=== PATIENT | female | born 1980 | race Asian ===

== ENCOUNTER 2021-11-18 16:25 | Inpatient (IN) | payer BC ==
[~2021-11-18] VITALS: Ht 152.4 cm; Wt 51.5 kg
[2021-11-18 16:25] VITALS: BP_SYST 111
[~2021-11-18 16:25] MED LIST: BUPIVACAINE /EPINEPHRINE/PF 0.25% 30 ML VIAL INJ ONE; LR 1,000 ML IV.SOLN IV ONE; MIDAZOLAM HCL 5 MG/5 ML VIAL IVP ONE; NS 1000 ML IV.SOLN IV ONE; PROPOFOL 200MG/ 20ML VIAL (DIPRIVAN) IV ONE; ROCURONIUM BROMIDE 10 MG/ML (ZEMURON) IV ONE; SEVOFLURANE 15 MIN GAS INH ONE; fentaNYL CITRATE 250 MCG/5 ML AMP IV ONE; metroNIDAZOLE 500 mg/NS 100 mL IVPB IV ONE
[2021-11-18 16:33] VITALS: BP_SYST 123
--- NOTE | 2021-11-18 16:47 | NUR ---
Placed in room 7. Placed on sandblasting supervisor, blood pressure machine and pulse oximeter. To gown for exam. Side rails up. Report given to CARYN MARIANO.
[2021-11-18] MEDS ORDERED: cefTRIAXone 1 GM in D5W 50 ML IV ONE (17:00)
[2021-11-18] MEDS ORDERED: NACL 0.9% 1,000 ML IV ONE ×3 (17:00→19:45)
[2021-11-18] MEDS ORDERED: metroNIDAZOLE 500 mg/NS 100 ML IV ONE (17:00)
--- NOTE | 2021-11-18 17:08 | NUR ---
# 20 gauge angiocath placed to left forearm. Use of asceptic technique. Opsite placed over site. Blood return noted. Blood for lab drawn from site. Flushed with 10 cc of normal saline. No evidence of infiltration noted. Patient tolerated well.
--- NOTE | 2021-11-18 17:08 | NUR ---
Urine collected and sent to lab.
--- NOTE | 2021-11-18 17:08 | NUR ---
Covid swab done and sent to lab.
[2021-11-18] MEDS ORDERED: cefTRIAXone 1 GM VIAL ONE (17:14)
[2021-11-18 17:21] LABS: BASOPHILS % (AUTO) 0.2 % (0.0-2.0); HEMATOCRIT 35.2 % (36-48); HEMOGLOBIN 11.9 g/dL (12.0-16.0); LYMPHOCYTES # (AUTO) 1.4 K/uL (1.0-5.5); MEAN CORPUSCULAR HEMOGLOBIN 30 pg (27-31); MEAN CORPUSCULAR HGB CONC 34 % (32-36); MEAN CORPUSCULAR VOLUME 89 fL (79.0-98.0); MONOCYTES # (AUTO) 0.6 K/uL (0.0-1.0); MONOCYTES % (AUTO) 3.3 % (1.7-9.3); NEUTROPHILS # (AUTO) 17.5 K/uL (1.8-7.7); NEUTROPHILS % (AUTO) 89.5 % (40.0-70.0); PLATELET COUNT (AUTO) 249 K/uL (130-430); RED BLOOD CELL COUNT(AUTO) 3.95 MIL/uL (4.2-6.2); RED CELL DISTRIBUTION WIDTH 12.6 % (9.0-15.0); WHITE BLOOD COUNT (AUTO) 19.6 K/uL (4.8-10.8)
[2021-11-18] MEDS: MORPHINE 4 MG INJ. 4 MG/ML VIAL IVP PRN ×2 (17:24→21:35)
[2021-11-18] MEDS: ONDANSETRON HCL 4 MG/2 ML VIAL IVP PRN ×2 (17:24→21:35)
[2021-11-18 17:35] LABS: CALCIUM 8.4 mg/dL (8.4-11.0); CREATININE 0.93 mg/dL (0.55-1.30); POTASSIUM 3.4 mmol/L (3.5-5.1)
[2021-11-18 17:37] LABS: BILIRUBIN,URINE NEGATIVE (NEGATIVE); CLARITY/URINE SL CLOUDY (CLEAR); COLOR,URINE YELLOW (YELLOW); GLUCOSE,URINE NEGATIVE (NEGATIVE); KETONES,URINE NEGATIVE (NEGATIVE); LEUKOCYTE ESTERASE ,URINE NEGATIVE (NEGATIVE); NITRITE, URINE NEGATIVE (NEGATIVE); PROTEIN URINE TRACE (NEGATIVE); UROBILINOGEN,URINE 0.2 (0.2-1.0)
[2021-11-18 17:41] LABS: ALBUMIN 3.8 g/dL (3.4-4.8); TOTAL BILIRUBIN 0.6 mg/dL (0.0-1.0)
--- NOTE | 2021-11-18 17:41 | NUR ---
test completed and results were negative.
[2021-11-18 17:46] LABS: BLOOD, URINE TRACE (NEGATIVE)
[2021-11-18] MEDS ORDERED: TELM80TA2 PO (17:55)
--- NOTE | 2021-11-18 17:55 | NUR ---
Medication reconciliation completed with information provided by patient. Any prior medication reconciliation on file was reviewed and corrected.
--- NOTE | 2021-11-18 17:55 | NUR ---
Personal Belonging List completed.
--- NOTE | 2021-11-18 18:33 | NUR ---
OR staff came to speak with patient. Nurse to call Dr Gray for surgery. Office number call unsuccessful at this time.
[2021-11-18 18:45] LABS: BACTERIA,URINE FEW /HPF (None Seen); MUCUS,URINE 2+ /LPF (None Seen); RBC,URINE 0-3 /HPF (0-3)
--- NOTE | 2021-11-18 19:15 | NUR ---
Report received from CARYN Castaneda at this time. Pt states "pain is slowly coming back but I want to wait a bit longer to receive more morphine". Pt informed of PRN status of morphine and interval between doses.
--- NOTE | 2021-11-18 19:42 | NUR ---
Spoke with Mor Gray and Andrew regarding surgery. Patient last ate at 1530. Dr. Gray scheduled surgery for 0511/19/21. Dr Gray stated he will notify OR crew. Dr Morales was notified of time.
--- NOTE | 2021-11-18 20:15 | NUR ---
ADMISSION NOTE Received patient from ER via wheelchair. Patient admitted with diagnosis of abdominal regidity. Patient oriented to hospital routine, call light, toileting and safety-patient verbalized understanding.
[2021-11-18 20:29] VITALS: BP_SYST 111
[2021-11-18 20:35] LABS: HCG,QUAL RESULT NEGATIVE (NEGATIVE)
--- NOTE | 2021-11-18 20:52 | NUR ---
DR. HAZEL AT BEDSIDE TO SEE PT. PT FOR SURGERY TOMORROW AM. PT MAINTAINED NPO.
[2021-11-19 00:03] VITALS: BP_SYST 117
[2021-11-19] MEDS: MORPHINE 4 MG INJ. 4 MG/ML VIAL IVP PRN ×2 (05:11)
--- NOTE | 2021-11-19 05:24 | NUR ---
OR nurse here for pt. Checklist done. Pt AAOx4. Pt medicated for c/o severe abd pain. CHG bath given. IVF infusing L. FA 20G clear and patent. Pt maintained NPO.
[2021-11-19] MEDS ORDERED: METOCLOPRAMIDE HCL 10 MG/2 ML VIAL IVP PRN (06:00)
[2021-11-19] MEDS ORDERED: ONDANSETRON HCL 4 MG/2 ML VIAL IVP PRN ×2 (06:00→10:15)
[2021-11-19] MEDS ORDERED: fentaNYL CITRATE/PF 100 MCG/2 ML AMP IVP PRN (06:00)
--- NOTE | 2021-11-19 07:14 | NUR ---
OPENING NOTE RECEIVED SBAR FROM NIGHT RN, PATIENT IN SURGERY
[2021-11-19] MEDS ORDERED: fentaNYL CITRATE/PF 100 MCG/2 ML AMP ONE (07:25)
[2021-11-19] MEDS: fentaNYL CITRATE/PF 100 MCG/2 ML AMP IVP PRN ×2 (07:25→07:50)
[2021-11-19 07:57] LABS: BASOPHILS % (AUTO) 0.1 % (0.0-2.0); EOSINOPHILS % (AUTO) 0.1 % (0.0-4.0); HEMATOCRIT 29.8 % (36-48); HEMOGLOBIN 10.4 g/dL (12.0-16.0); LYMPHOCYTES # (AUTO) 0.9 K/uL (1.0-5.5); LYMPHOCYTES % (AUTO) 11.7 % (20.5-51.5); MEAN CORPUSCULAR HEMOGLOBIN 32 pg (27-31); MEAN CORPUSCULAR HGB CONC 35 % (32-36); MEAN CORPUSCULAR VOLUME 91 fL (79.0-98.0); MONOCYTES # (AUTO) 0.2 K/uL (0.0-1.0); MONOCYTES % (AUTO) 2.6 % (1.7-9.3); NEUTROPHILS # (AUTO) 6.4 K/uL (1.8-7.7); NEUTROPHILS % (AUTO) 85.5 % (40.0-70.0); PLATELET COUNT (AUTO) 191 K/uL (130-430); RED BLOOD CELL COUNT(AUTO) 3.28 MIL/uL (4.2-6.2); RED CELL DISTRIBUTION WIDTH 12.5 % (9.0-15.0); WHITE BLOOD COUNT (AUTO) 7.5 K/uL (4.8-10.8)
[2021-11-19 08:05] LABS: CREATININE 0.69 mg/dL (0.55-1.30)
[2021-11-19 08:09] LABS: INR 1.1 (0.8-1.2); PROTHROMBIN TIME 11.5 SECS (9.5-12.5)
[2021-11-19 08:24] LABS: CALCIUM 6.9 mg/dL (8.4-11.0)
[2021-11-19] MEDS ORDERED: cefTRIAXone 1 GM in D5W 50 ML IV SCH ×2 (08:30→17:00)
[2021-11-19 08:40] VITALS: BP_SYST 112
--- NOTE | 2021-11-19 08:41 | NUR ---
RECEIVED FROM OP NOTE MELISA RECEIVED REPORT, FROM RN, SCD IN PLACE, RESPIRATIONS EVEN, NON LABORED, BED IN LOW AND LOCKED POSITION, CALL LIGHT WITHIN REACH, BED ALARM ON. VS TAKEN, 3 WOUNDS SITES COVERED WITH BANDAGE
--- NOTE | 2021-11-19 08:56 | NUR ---
MD DR STEWARD BEDSIDE EXAMINING PATIENT
--- NOTE | 2021-11-19 09:28 | NUR ---
ATTENDING MD STEAK TENDERIZER MACHINE DR CHASE WAS CALLED, RE: CRITICAL LABS. SPOKE TO RHIANNA.
--- NOTE | 2021-11-19 09:33 | NUR ---
critical informed dr Snyder of Calcium 6.9 no new orders
[2021-11-19] MEDS ORDERED: MAGNESIUM SULFATE 50 ML IV PRN (10:15)
[2021-11-19] MEDS ORDERED: MORPHINE 2 MG/ML INJ. SYRINGE IVP PRN (10:15)
[2021-11-19] MEDS ORDERED: DOCUSATE SODIUM 100 MG CAPSULE PO PRN (10:15)
[2021-11-19] MEDS ORDERED: NALOXONE HCL 0.4 MG/ML AMP (NARCAN) IVP PRN ×2 (10:15)
[2021-11-19] MEDS ORDERED: ZOLPIDEM TARTRATE 5 MG TABLET PO PRN (10:15)
[2021-11-19] MEDS ORDERED: MUPIROCIN 2% TOPICAL OINTMENT 22 GM NS PRN (10:15)
[2021-11-19] MEDS ORDERED: LORazepam 2 MG/ML VIAL IVP PRN (10:15)
--- NOTE | 2021-11-19 11:41 | NUR ---
nurse note assisted patient ambulate to the bathroom and back to bed, patient voided. tolerating juices and ice chips. denies any pain. Has discomfort with ambulation
[2021-11-19 12:00] VITALS: BP_SYST 124
[2021-11-19] MEDS: metroNIDAZOLE 500 mg/NS 100 ML IV SCH ×2 (14:39→21:47)
[2021-11-19] MEDS: MORPHINE 2 MG/ML INJ. SYRINGE IVP PRN ×3 (14:40→22:46)
--- NOTE | 2021-11-19 15:00 | NUR ---
nurse note assisted patient ambulate to bathroom, voided, ambulated back to bed. Denies pain just discomfort.
[2021-11-19 16:00] VITALS: BP_SYST 122
--- NOTE | 2021-11-19 18:30 | NUR ---
nurse note assisted patient ambulation to the bathroom. voided, return to bed. Patient complaining of pain and requested pain medication.
--- NOTE | 2021-11-19 19:15 | NUR ---
Closing note provided Sbar to night RN, patient in bed, respirations even, non labored, bed in low and locked position. Endorsed re assessment of pain medication effectiveness. Endorsed care to RN.
[2021-11-19 20:20] VITALS: BP_SYST 115
--- NOTE | 2021-11-19 20:20 | NUR ---
Opening notes/Incentive spirometer Pt AAOx4, VSS, afebrile. Pt states pain is ok at this time. Pt tolerated clear liquid diet fairly. Abd lap sites bandage x3 dry and intact, one top lap site with dry serousangenous drainage. Encouraged pt to use I.S. 10x per hour while awake, pt verbalized understanding. Obey SCDs on. Call light within reach. Bed low, locked, siderails up x2. To monitor.
[2021-11-19] MEDS: POTASSIUM CHLORIDE 20 MEQ TAB.PRT.SR PO PRN (20:22)
--- NOTE | 2021-11-19 21:46 | NUR ---
Ambulated to Bathroom Pt ambulated to bathroom, no sob noted. Pt voided. Pt c/o pain, educated pt Morphine is every 4 hrs as needed and due at 1040, pt agreeable. IV antibiotic Flagyl administered at ordered rate L. FA 20G clear and patent. Call light within reach. To monitor.
[2021-11-20 00:04] VITALS: BP_SYST 107
[2021-11-20] MEDS: MORPHINE 2 MG/ML INJ. SYRINGE IVP PRN ×4 (04:35→18:56)
[2021-11-20] MEDS: metroNIDAZOLE 500 mg/NS 100 ML IV SCH ×3 (05:18→22:48)
--- NOTE | 2021-11-20 05:18 | NUR ---
Closing notes Pt awake, states pain is better. IV abx administered at ordered rate L. FA 20G clear and patent. Pt ambulates to bathroom. Obey SCDs on. Call light within reach. Bed low, locked, siderails up x2. Safety maintained. To endorse to AM nurse.
[2021-11-20 08:00] VITALS: BP_SYST 113
--- NOTE | 2021-11-20 08:00 | NUR ---
Opening Note Patient is sitting up in bed awake. A/O x4. No apparent distress noted. Vitals as charted. Call light within reach. Safety and fall precautions in place. All needs met.
[2021-11-20 08:12] LABS: BASOPHILS % (AUTO) 0.2 % (0.0-2.0); HEMATOCRIT 28.7 % (36-48); LYMPHOCYTES # (AUTO) 0.5 K/uL (1.0-5.5); LYMPHOCYTES % (AUTO) 5.7 % (20.5-51.5); MEAN CORPUSCULAR HEMOGLOBIN 32 pg (27-31); MEAN CORPUSCULAR HGB CONC 35 % (32-36); MEAN CORPUSCULAR VOLUME 92 fL (79.0-98.0); MONOCYTES # (AUTO) 0.2 K/uL (0.0-1.0); MONOCYTES % (AUTO) 2.5 % (1.7-9.3); NEUTROPHILS # (AUTO) 8.4 K/uL (1.8-7.7); NEUTROPHILS % (AUTO) 91.6 % (40.0-70.0); PLATELET COUNT (AUTO) 196 K/uL (130-430); RED BLOOD CELL COUNT(AUTO) 3.13 MIL/uL (4.2-6.2); RED CELL DISTRIBUTION WIDTH 12.6 % (9.0-15.0); WHITE BLOOD COUNT (AUTO) 9.1 K/uL (4.8-10.8)
--- NOTE | 2021-11-20 08:51 | NUR ---
PRN Pain Medication Pain medication given to patient as charted. Patient has low grade fever as charted, cooling measures provided.
[2021-11-20 12:00] VITALS: BP_SYST 112
[2021-11-20] MEDS: PIPERACILLIN/TAZO 4.5GM/DEX-IS 100 ML IV SCH ×2 (13:11→21:12)
[2021-11-20] MEDS: ACETAMINOPHEN 325 MG TABLET PO PRN ×2 (13:21→21:11)
[2021-11-20 16:44] VITALS: BP_SYST 101
[2021-11-20] MEDS: POTASSIUM CHLORIDE 20 MEQ TAB.PRT.SR PO PRN (17:08)
--- NOTE | 2021-11-20 19:40 | NUR ---
Closing Note Patient is laying in bed awake. No apparent distress noted. Provided patient with pain medication throughout shift as charted. Call light within reach. Safety and fall precautions in place. All needs met. Will endorse care to shift commander RN.
[2021-11-20 19:45] VITALS: BP_SYST 102
--- NOTE | 2021-11-20 20:00 | NUR ---
Report received. Pt is awake, alert, oriented x4, vs stable, no acute distress noted. Patient is lying in bed, c/o of gas pain and tenderness to abdomen. Patient is hesitant of taking morphine iv due to how it makes her feel. Will inform MD to obtain a different pain med. Assuming care for pt.
--- NOTE | 2021-11-20 20:49 | NUR ---
[facility] and spoke to Dr. Adrian. Informe that Morphine 1 mg q4h does not help with the pain and gas pain is really bad per patient. Order received for a x1 dose of Toradol 15 mg iv.
[2021-11-20] MEDS ORDERED: KETOROLAC TROMETHAMINE 15 MG VIAL IVP ONE (21:00)
[2021-11-20 23:05] VITALS: BP_SYST 93
[2021-11-21] MEDS: ACETAMINOPHEN 325 MG TABLET PO PRN ×2 (04:10→16:29)
[2021-11-21] MEDS: metroNIDAZOLE 500 mg/NS 100 ML IV SCH ×3 (05:57→21:19)
[2021-11-21] MEDS: PIPERACILLIN/TAZO 4.5GM/DEX-IS 100 ML IV SCH ×3 (06:57→23:25)
[2021-11-21 07:20] VITALS: BP_SYST 97
--- NOTE | 2021-11-21 07:20 | NUR ---
Opening Note Patient is awake, laying in bed. A/O x4. No apparent distress noted. Vitals as charted. Call light within reach. Safety and fall precautions in place. All needs met.
[2021-11-21 07:53] LABS: BASOPHILS % (AUTO) 0.2 % (0.0-2.0); EOSINOPHILS # (AUTO) 0.1 K/uL (0.0-0.4); EOSINOPHILS % (AUTO) 0.8 % (0.0-4.0); HEMATOCRIT 26.8 % (36-48); HEMOGLOBIN 9.2 g/dL (12.0-16.0); LYMPHOCYTES # (AUTO) 0.6 K/uL (1.0-5.5); LYMPHOCYTES % (AUTO) 5.8 % (20.5-51.5); MEAN CORPUSCULAR HEMOGLOBIN 32 pg (27-31); MEAN CORPUSCULAR HGB CONC 35 % (32-36); MEAN CORPUSCULAR VOLUME 92 fL (79.0-98.0); MONOCYTES # (AUTO) 0.4 K/uL (0.0-1.0); MONOCYTES % (AUTO) 3.9 % (1.7-9.3); NEUTROPHILS # (AUTO) 8.8 K/uL (1.8-7.7); NEUTROPHILS % (AUTO) 89.3 % (40.0-70.0); PLATELET COUNT (AUTO) 212 K/uL (130-430); RED BLOOD CELL COUNT(AUTO) 2.93 MIL/uL (4.2-6.2); RED CELL DISTRIBUTION WIDTH 12.5 % (9.0-15.0); WHITE BLOOD COUNT (AUTO) 9.9 K/uL (4.8-10.8)
[2021-11-21 08:18] LABS: ALBUMIN 2.3 g/dL (3.4-4.8); CALCIUM 7.2 mg/dL (8.4-11.0); CREATININE 0.73 mg/dL (0.55-1.30); POTASSIUM 3.6 mmol/L (3.5-5.1); TOTAL BILIRUBIN 0.7 mg/dL (0.0-1.0)
--- NOTE | 2021-11-21 08:20 | NUR ---
Spoke with Dr. Huynh Spoke with Dr. Huynh, provided an update on patient. No new orders given.
[2021-11-21] MEDS ORDERED: LEVO500T90 PO (11:10)
[2021-11-21] MEDS ORDERED: HYDR-3921 PO ×2 (11:11→11:23)
[2021-11-21] MEDS ORDERED: TRAM50TA2 PO (11:17)
[2021-11-21 12:20] VITALS: BP_SYST 101
[2021-11-21] MEDS: MORPHINE 2 MG/ML INJ. SYRINGE IVP PRN ×3 (12:22→21:25)
[2021-11-21 16:19] VITALS: BP_SYST 111
[2021-11-21 16:56] VITALS: BP_SYST 108
--- NOTE | 2021-11-21 19:38 | NUR ---
Closing Note Patient is laying in bed awake. No apparent distress noted. Call light within reach. Safety and fall precautions in place. All needs met. Endorsed care to inspector materials and processes CARYN Gotti.
--- NOTE | 2021-11-21 20:10 | NUR ---
RECEIVED PT LYING IN BED, NO DISTRESS NOTED DENIES PAIN. ABD DISCOMFORT UPON LIGHT PALPATION. IV SITE TO LT FA SITE CDI. PT LEFT FOR CT A/P VIA W/C
[2021-11-21 20:12] VITALS: BP_SYST 106
[2021-11-22 00:34] VITALS: BP_SYST 113
[2021-11-22] MEDS: MORPHINE 2 MG/ML INJ. SYRINGE IVP PRN ×3 (02:06→18:07)
[2021-11-22] MEDS: PIPERACILLIN/TAZO 4.5GM/DEX-IS 100 ML IV SCH ×2 (05:37→12:59)
[2021-11-22] MEDS: metroNIDAZOLE 500 mg/NS 100 ML IV SCH ×2 (06:59→12:59)
[2021-11-22 07:15] LABS: BASOPHILS % (AUTO) 0.1 % (0.0-2.0); EOSINOPHILS # (AUTO) 0.1 K/uL (0.0-0.4); EOSINOPHILS % (AUTO) 0.5 % (0.0-4.0); LYMPHOCYTES # (AUTO) 0.7 K/uL (1.0-5.5); LYMPHOCYTES % (AUTO) 6.7 % (20.5-51.5); MEAN CORPUSCULAR HEMOGLOBIN 31 pg (27-31); MEAN CORPUSCULAR HGB CONC 35 % (32-36); MEAN CORPUSCULAR VOLUME 90 fL (79.0-98.0); MONOCYTES # (AUTO) 0.7 K/uL (0.0-1.0); MONOCYTES % (AUTO) 6.7 % (1.7-9.3); NEUTROPHILS # (AUTO) 9.1 K/uL (1.8-7.7); PLATELET COUNT (AUTO) 274 K/uL (130-430); RED BLOOD CELL COUNT(AUTO) 2.89 MIL/uL (4.2-6.2); RED CELL DISTRIBUTION WIDTH 12.9 % (9.0-15.0); WHITE BLOOD COUNT (AUTO) 10.6 K/uL (4.8-10.8)
--- NOTE | 2021-11-22 07:45 | NUR ---
RECEIVED PATIENT FROM PM NURSE, ALERT AND ORIENTED, ABLE TO VERBALIZE NEEDS, NO C/O PAIN AT THIS TIME, WILL ASSUME ALL CARE OF PATIENT
[2021-11-22 12:00] VITALS: BP_SYST 113
[2021-11-22 17:05] VITALS: BP_SYST 110
[2021-11-22] MEDS ORDERED: HYDR-3917 PO (17:37)
[2021-11-22] MEDS ORDERED: LEVO500T90 PO (17:38)
--- NOTE | 2021-11-22 17:41 | NUR ---
CONSULTATION PAGED/CALLED Reason for Consultation: [] appy Person Who was Notified: [] GERHARD Consulting Physician: [] DR DUSTIN KERR Cathead Operator Specialty: [] ID Ordering Physician: [] DR BELCHER
--- NOTE | 2021-11-22 18:00 | NUR ---
PATIENT C/O 12/19 PAIN, PRN MORPHINE ADMINISTERED PER EMAR
--- NOTE | 2021-11-22 18:31 | NUR ---
PATIENT OK TO DC HOME PER DR. HAZEL, TEMPERATURE WNL DURING MY SHIFT, WILL ENDORSE DC TO PM NURSE
[2021-11-22 18:42] VITALS: BP_SYST 111
== END 2021-11-22 20:35 | disposition home or self-care (01) | DRG 853 ==
LOC: SED 16:25 → SMU 19:39
PROVIDERS: ADMIT Family Medicine; ATTEND Internal Medicine Hospice and Palliative Medicine
PROC: 0W9F4ZZ Drainage of Abdominal Wall, Percutaneous Endoscopic Approach (ICD-10-PCS; 2021-11-19)
PROC: 0DTJ4ZZ Resection of Appendix, Percutaneous Endoscopic Approach (ICD-10-PCS; principal; 2021-11-19 05:43)
DX: A41.9 Sepsis, unspecified organism (principal); K35.33 Acute appendicitis with perforation, localized peritonitis, and gangrene, with abscess; E87.1 Hypo-osmolality and hyponatremia; R65.20 Severe sepsis without septic shock; E87.6 Hypokalemia; D64.9 Anemia, unspecified; Z20.822 Contact with and (suspected) exposure to COVID-19; Z91.040 Latex allergy status; Z91.018 Allergy to other foods; Z79.899 Other long term (current) drug therapy
CPT/HCPCS: 36415; 76376; 80048; 80053; 81000; 83605; 84703; 85025; 85610-TC; 85730-TC; 87040; 88304; 96365; 96367; 96375; 99285; C1727; J0696; J1885; J2250; J2270; J2405; J2543; J2704; J3010; J3490; J7030; J7060; J7120